=== PATIENT | male | born 2005 | race Asian ===

== ENCOUNTER 2024-11-09 18:25 | Emergency (ER) | payer SELFPAY ==
[~2024-11-09] VITALS: Ht 185.4 cm; Wt 180.0 kg
[2024-11-09 18:34] VITALS: PULSE 66; TEMP 98.8
--- NOTE | 2024-11-09 18:35 | Physician Documentation ---
History of Present Illness ~ Stated Complaint: ETOH Time Seen by MD: 18:30 Source: EMS Exam Limitations: intoxication HPI 19-year-old male who presents by EMS with reported alcohol use and vomiting. History is limited from the patient due to his clinical condition and intoxication. He is able to answer some simple questions but does not provide history otherwise. EMS reports that he is a college student from [employer], he is staying with a friend at a house boat at [place]. Friends found him intoxicated and vomiting, reported that he had been drinking a lot of alcohol today. EMS gave 1 L IV fluids and 8 mg Zofran during transport. Review of Systems Unable to obtain complete ROS: altered mental status Physical Exam Physical Exam General: This is a thin, intoxicated appearing young male, minimally responsive HEENT: Atraumatic, oropharynx appears dry. Pupils are 4 mm and reactive, equal. Heart: Mild tachycardic, appears regular Lungs: Clear breath sounds bilateral, normal work of breathing, normal oxygen saturation on room air Abdomen: Soft, nondistended, no reaction to deep palpation in all quadrants Extremities: Warm and well-perfused, full range of motion without limitation, no obvious deformity or traumatic injury Neuro: The patient appears sedated, but does respond to stimuli and simple commands. He does move all 4 extremities. Psychiatric: Appears clinically intoxicated, has slurred speech and appears sedated Progress Results/Orders Results/Orders Completed Orders - TIMMY BRICE MD CMP (11/09/24 18:30) Ethanol (11/09/24 18:30) Vital Signs 11/09/24 11/09/24 11/09/24 11/09/24 18:30 18:34 18:35 21:56 Temp 98.8 Pulse 66 66 Resp 16 19 16 15 B/P (MAP) 118/68 118/68 (85) 120/87 Pulse Ox 99 100 Laboratory Tests Test 11/09/24 18:46 Sodium Level 143 Potassium Level 3.3 L Chloride Level 108 H Carbon Dioxide Level 26.4 Anion Gap 9 Blood Urea Nitrogen 12 Creatinine 0.75 Estimated GFR/1.73 m2 > 90 BUN/Creatinine Ratio 16.0 Glucose Level 110 H Calcium Level 7.7 L Total Bilirubin 1.0 Aspartate Amino Transf (AST/SGOT) 27 Alanine Aminotransferase (ALT/SGPT) 13 Alkaline Phosphatase 66 Total Protein 6.9 Albumin 3.7 Globulin 3.2 Albumin/Globulin Ratio 1.2 Chemistry Comments Ethyl Alcohol Level 182 H Re-Evaluation Re-Evaluation : Re-Evaluation: Improved Progress The patient is now awake, able to ambulate safely, and would like to go home. Medical Decision Making Differential Dx:Considerations: Include: Alcohol abuse, Drug Overdose- Accidental, Renal failure Additional Comment Differential includes electrolyte derangement Plan: The patient already received IV fluids and nausea medication. We will check a chemistry for electrolytes and an alcohol level. Plan for observation. Assessment 19-year-old male who presents with vomiting and altered mental status in the setting of reported alcohol use. Here in the ED, he does appear clinically intoxicated. He has no evidence of traumatic injuries including no sign of head trauma. He already received IV fluids and Zofran from EMS. He was observed here in the emergency department, after which time his condition improved and he was able to safely ambulate. Laboratory testing shows no dangerous findings except for mild hypokalemia. No evidence of dangerous medical or surgical emergency, and I feel he is safe for discharge with ongoing symptomatic treatment. He was advised to avoid heavy alcohol use. Departure Time of Disposition: 20:59 Disposition: 01 HOME / SELF CARE / HOMELESS Impression: Primary Impression: Alcoholic intoxication Additional Impressions: Nausea and vomiting Hypokalemia Condition: Improved Discharge Instructions: Alcohol Intoxication Referrals: NO PRIMARY CARE PROVIDER (PCP) Education Educated: Patient Educated regarding: diagnosis, treatment Signature Scribe Signature: umu Attestation: TIMMY Dorsey MD November 09, 2024 18:35
[2024-11-09 19:07] LABS: ALANINE AMINOTRANSFERASE 13 U/L (12-78); ALBUMIN 3.7 G/DL (3.4-5.0); ALBUMIN/GLOBULIN RATIO 1.2 (1.1-1.5); ALKALINE PHOSPHATASE 66 IU/L (46-116); ANION GAP 9 (8-16); ASPARTATE AMINO TRANSFERASE 27 U/L (10-37); BLOOD UREA NITROGEN 12 MG/DL (7-18); CALCIUM 7.7 MG/DL (8.5-10.1); CHLORIDE 108 MMOL/L (99-107); CREATININE 0.75 MG/DL (0.60-1.10); ETHANOL 182 MG/DL (<10); GLUCOSE 110 MG/DL (70-104); POTASSIUM 3.3 MMOL/L (3.5-5.1); SODIUM 143 MMOL/L (135-145); TOTAL CARBON DIOXIDE 26.4 MMOL/L (24-32); TOTAL PROTEIN 6.9 G/DL (6.4-8.2); eCRCL 176 ML/MIN; eGFR > 90 ML/MIN
[2024-11-09 21:56] VITALS: BP 120/87; RESP 15; O2SAT 100
== END 2024-11-09 21:57 | disposition home or self-care (01) ==
LOC: ER 18:25
DX: F10.129 Alcohol abuse with intoxication, unspecified (principal); E87.6 Hypokalemia; R11.2 Nausea with vomiting, unspecified; Y90.9 Presence of alcohol in blood, level not specified
CPT/HCPCS: 36415; 80053; 80320; 99284